=== PATIENT | female | born 1980 | race Caucasian/White ===

== ENCOUNTER 2021-11-03 18:25 | Emergency (ER) | payer OTHER ==
[~2021-11-03] VITALS: Ht 165.1 cm; Wt 89.8 kg
[2021-11-03 18:55] VITALS: BP_SYST 138
[2021-11-03 21:00] VITALS: BP_SYST 138
--- NOTE | 2021-11-03 21:00 | NUR ---
PT TRIAGED AND PLACED IN THE WAITING ROOM. VSS. DELEON.
--- NOTE | 2021-11-03 21:05 | NUR ---
DR. HUMPHRIES TO SEE PT IN TRIAGE.
--- NOTE | 2021-11-03 21:10 | NUR ---
PATIENT AAOX4 AND AMBULATORY FROM HOME WITH history of prior dog bite to third digit of right hand who is presenting for wound check. She was seen prior for this bite and was prescribed a course of antibiotics, which patient is currently taking and is compliant. Patient was evaluated by urgent care again secondary to this bite for presentation of persistent mild erythema and swelling, and she was instructed to present to ED for further evaluation.
--- NOTE | 2021-11-03 21:20 | NUR ---
Patient given written and verbal discharge instructions and verbalizes understanding. DR.MOORE MABEL BOOTHE discussed with patient the results and treatment provided. Patient in stable condition. ID arm band removed. Patient educated on pain management and to follow up with PMD. Pain Scale 0/10. Opportunity for questions provided and answered. Medication side effect fact sheet provided.
--- NOTE | 2021-11-03 21:36 | NUR ---
Socorro sapp in ED - 11/03/21 at 2136 by [email or web address] PT TRIAGED AND PLACED IN THE WAITING ROOM. VSS. DELEON.
== END 2021-11-03 21:00 | disposition home or self-care (01) ==
LOC: SED 18:25
DX: S61.252D Open bite of right middle finger without damage to nail, subsequent encounter (principal); F41.9 Anxiety disorder, unspecified; Z48.00 Encounter for change or removal of nonsurgical wound dressing; W54.0XXD Bitten by dog, subsequent encounter
CPT/HCPCS: 99281